=== PATIENT | female | born 1990 | race African-American/Black ===

== ENCOUNTER 2021-07-08 08:31 | Emergency (ER) | payer OTHER ==
[~2021-07-08] VITALS: Ht 160 cm; Wt 86.2 kg
== END 2021-07-08 15:46 | disposition home or self-care (01) ==
LOC: ER 08:31
DX: R10.31 Right lower quadrant pain (principal); K80.50 Calculus of bile duct without cholangitis or cholecystitis without obstruction

== ENCOUNTER 2021-12-03 17:48 | Emergency (ER) | payer OTHER ==
[~2021-12-03] VITALS: Ht 160 cm; Wt 79.4 kg
== END 2021-12-03 22:21 | disposition home or self-care (01) ==
LOC: ER 17:48
DX: N39.0 Urinary tract infection, site not specified (principal); R10.2 Pelvic and perineal pain; Z20.822 Contact with and (suspected) exposure to COVID-19; D25.9 Leiomyoma of uterus, unspecified